=== PATIENT | female | born 1965 | race Two or more races ===

== ENCOUNTER 2017-04-19 14:41 | Emergency (ER) | payer OTHER ==
[~2017-04-19] VITALS: Ht 162.6 cm; Wt 54.4 kg
--- NOTE | 2017-04-19 15:52 | NUR ---
51 years old female walk-in to er c/o right foot pain.no swelling/no trauma.
[2017-04-19 17:18] VITALS: BP 130/70
== END 2017-04-19 17:29 | disposition home or self-care (01) ==
LOC: ER 14:43
DX: S92.511A Displaced fracture of proximal phalanx of right lesser toe(s), initial encounter for closed fracture (principal); X50.9XXA Other and unspecified overexertion or strenuous movements or postures, initial encounter; Y93.89 Activity, other specified; Y92.89 Other specified places as the place of occurrence of the external cause; Y99.8 Other external cause status
CPT/HCPCS: 73660; A4663